=== PATIENT | female | born 1975 | race Caucasian/White ===

== ENCOUNTER 2017-04-27 13:41 | Outpatient (CLI) | payer OTHER | END 2017-04-27 14:02 | disposition home or self-care (01) | LOC: NUCLEAR 13:41 | DX: M81.0 Age-related osteoporosis without current pathological fracture (principal); Z13.820 Encounter for screening for osteoporosis ==

== ENCOUNTER 2017-04-27 15:17 | Outpatient (CLI) | payer OTHER | END 2017-04-27 15:26 | disposition home or self-care (01) | LOC: MAMO-SONO 15:17 | DX: N64.89 Other specified disorders of breast (principal); N64.4 Mastodynia; N80.9 Endometriosis, unspecified; D25.9 Leiomyoma of uterus, unspecified; E03.8 Other specified hypothyroidism; E04.1 Nontoxic single thyroid nodule ==